=== PATIENT | female | born 1975 | race Caucasian/White ===

== ENCOUNTER 2019-01-24 23:36 | Emergency (ER) | payer SELFPAY ==
[~2019-01-24] VITALS: Ht 154.9 cm; Wt 77.1 kg
[2019-01-24 23:37] VITALS: Ht 154.9 cm; Wt 77.1 kg
[2019-01-25 00:27] LABS: PLATELET COUNT 190 x10^3mcL (130-400)
[2019-01-25 00:29] LABS: RED CELL DISTRIBUTION WIDTH 15.9 % (11.5-14.5)
[2019-01-25 00:40] LABS: CARBON DIOXIDE 23.7 mmol/L (21-32); CHLORIDE SERUM 110 mmol/L (98-107); CREATININE SERUM 0.9 mg/dL (0.6-1.0); GFR1 > 60 mL/min; GLUCOSE SERUM 120 mg/dL (74-106); SODIUM SERUM 145 mmol/L (136-145)
[2019-01-25 00:44] LABS: ALBUMIN 3.7 g/dL (3.4-5.0); ALKALINE PHOSPHATASE 155 U/L (46-116); ALT/SGPT 211 U/L (14-59); AST/SGOT 121 U/L (15-37); BILIRUBIN TOTAL 0.7 mg/dL (0.20-1.00); TOTAL PROTEIN, SERUM 7.3 g/dL (6.4-8.2)
[2019-01-25 04:30] VITALS: BP 109/58
== END 2019-01-25 04:30 | disposition home or self-care (01) ==
LOC: EDBD 23:36 → ED 23:36
PROVIDERS: Emergency Medicine
DX: R55 Syncope and collapse (principal); R42 Dizziness and giddiness; R40.4 Transient alteration of awareness
CPT/HCPCS: 36415